=== PATIENT | male | born 1960 | race African-American/Black ===

== ENCOUNTER 2018-11-25 05:51 | Day surgery (SDC) | payer OTHER ==
[2018-11-24 09:35] VITALS: BMI 27.3
[2018-11-25] MEDS ORDERED: Lidocaine 1% w/Epinephrine 1:100K 20 ML VIAL ONE (10:56)
[2018-11-25] MEDS ORDERED: HYDROmorphone 0.5 MG/0.5 ML SYRINGE ONE ×2 (10:57→12:23)
[2018-11-25] MEDS ORDERED: Fentanyl 100 MCG/2 ML VIAL ONE (10:57)
[2018-11-25] MEDS ORDERED: Midazolam HCl 2 mg/2 ml Vial ONE (10:57)
[2018-11-25] MEDS ORDERED: Lidocaine 1% PF 5 ML VIAL ONE (12:45)
[2018-11-25] MEDS ORDERED: PROPOFOL 200 MG/20 ML VIAL ONE (12:45)
[2018-11-25] MEDS ORDERED: PHENYLEPHRINE-NS 100 MCG/ML 10 ML SYRINGE ONE (12:45)
[2018-11-25] MEDS ORDERED: Dexamethasone 20 MG/5 ML VIAL ONE (12:45)
[2018-11-25] MEDS ORDERED: ePHEDrine 50 MG/ML VIAL ONE (12:45)
[2018-11-25] MEDS ORDERED: Succinylcholine Chloride 20 MG/ML 10 ml SYRINGE FS ONE (12:45)
[2018-11-25] MEDS ORDERED: Ondansetron PF 4 MG/2 ML Vial ONE (12:45)
[2018-11-25] MEDS ORDERED: Hydrocodone-Acetamin 15 ML UDCUP ONE (14:54)
--- NOTE | 2018-11-25 23:52 | EKG ---
Test Reason : PREOP Blood Pressure : / mmHG Vent. Rate : 045 BPM Atrial Rate : 045 BPM P-R Int : 206 ms QRS Dur : 098 ms QT Int : 464 ms P-R-T Axes : 059 072 027 degrees QTc Int : 401 ms Marked sinus bradycardia Abnormal ECG No previous ECGs available Confirmed by Rhona DAMIAN ([id number]) on 11/25/2018 11:52:42 PM Referred By: [email or web address] Confirmed By:Rhona DAMIAN
--- NOTE | 2018-11-26 11:10 | OP ---
DATE OF PROCEDURE: 11/25/2018 PREOPERATIVE DIAGNOSIS: Left parotid mass. POSTOPERATIVE DIAGNOSIS: Left Warthin's tumor. PROCEDURE PERFORMED: Left parotidectomy with facial nerve dissection using facial nerve monitoring. PROCEDURE IN DETAIL: After consent was obtained, the patient was identified and brought to the OR and placed on the operating table in supine position. General endotracheal anesthesia was obtained. The patient was positioned, prepped and draped for surgery. Facial nerve monitoring in the orbicularis oculi and orbicularis auris was placed and documented to be functioning normally. We then proceeded with demarcating the intended lines of incision and the skin crease to approximately 2 fingerbreadths below the angle of the mandible and then along the preauricular region. The incision was then made through the skin and subcutaneous tissues down to the platysma fascia and the flaps were elevated at the level of the SMAS layer. Ultimately, the skin flap was tacked anteriorly and dissection was initiated down to identify the trunk of the facial nerve. Hopefully, this dissection continued along the external auditory canal cartilage in the posterior insertion of the digastric muscle. Trunk was found deep near the pointer cartilage of the external canal. We then followed the trunk anteriorly as the parotid tissue was reflected laterally. We then dissected into the inferior and superior branches of the facial nerve while reflecting the tumor anteriorly. Once we had dissected beyond the tumor, we then transected the tumor and sent it for permanent histologic evaluation. Hemostasis was obtained. Fibrillar Surgicel was placed in deep aspect of the wound and found that the nerve was documented to be functioning all branches with a nerve stimulator. We then reapproximated the fascia with 4-0 Monocryl and then closed the subdermal skin with 5-0 Monocryl. The preauricular skin was closed with a running 6-0 Prolene and the cervical skin with interrupted 5-0 Prolene. Sterile dressing was applied. The patient was awakened, extubated, and taken to recovery room in stable condition with facial nerve functioning in all branches prior to discharge home. Job ID: [id number]
== END 2018-11-25 15:33 | disposition home or self-care (01) ==
LOC: SDC 05:51
PROVIDERS: ATTEND Specialist
PROC: 00BM0ZZ Excision of Facial Nerve, Open Approach (ICD-10-PCS; principal; 2018-11-25)
PROC: 0CT90ZZ Resection of Left Parotid Gland, Open Approach (ICD-10-PCS; principal; 2018-11-25)
DX: D11.0 Benign neoplasm of parotid gland (principal); F17.200 Nicotine dependence, unspecified, uncomplicated
CPT/HCPCS: 88305; 88307; 93005; 93010; J1100; J1170; J2001; J2250; J2405; J2704; J3010; J3490